=== PATIENT | male | born 1990 | race African-American/Black ===

== ENCOUNTER 2017-05-22 13:53 | Emergency (ER) | payer SELFPAY ==
[~2017-05-22] VITALS: Ht 182.9 cm; Wt 82.0 kg
[2017-05-22] MEDS ORDERED: IOHEXOL 350 MG/ML 10 ML VIAL (for RAD DIAG) IVCONTRAST ONE (13:54)
[2017-05-22 14:07] VITALS: BP 124/67; PULSE 87; RESP 19; TEMP 98.8; O2SAT 99
[2017-05-22] MEDS ORDERED: ONDANSETRON HCL 4 MG/2 ML VIAL IV PUSH ONE (14:15)
[2017-05-22] MEDS ORDERED: SODIUM CHLOR 0.9% 1000 ML INJ 1,000 ML IV ONE (14:15)
[2017-05-22] MEDS ORDERED: KETOROLAC TROMETHAMINE 30 MG/ML (IVP) VIAL IV PUSH ONE (14:15)
[2017-05-22] MEDS ORDERED: MORPHINE SULFATE 2 MG/ML INJ IV PUSH ONE (14:15)
--- NOTE | 2017-05-22 14:24 | PD ---
HPI Chief Complaint: GI Complaint Time Seen by Provider: 14:07 Travel History International Travel<30 days: No Contact w/Intl Traveler<30days: No Traveled to known affect area: No History of Present Illness HPI 26-year-old male complains of right-sided abdominal pain, nausea vomiting, right groin pain, right leg pain. Patient states that the symptoms started this morning. Patient states the pain is severe pain sharp pain started on the right side abdomen with radiation to right groin and right leg. Patient denies any fever chills. Patient denies any injury. Patient denies any dysuria or frequency. Patient denies any back pain. Patient denies any history IV drug abuse. PFSH Past Medical History Bipolar Disorder: Yes Medical other: Yes (MANIC DEPRESSIVE) Schizophrenia: Yes Past Surgical History Surgical History: No Previous Surgery Social History Alcohol Use: No Tobacco Use: Yes Substance Use: Yes (THC TODAY) Allergies-Medications (Allergen,Severity, Reaction): Coded Allergies: No Known Allergies (Unverified , 05/22/17) Reported Meds & Prescriptions Reported Meds & Active Scripts Active No Active Prescriptions or Reported Medications Review of Systems General / Constitutional: No: Fever Eyes: No: Visual changes HENT: No: Headaches Cardiovascular: No: Chest Pain or Discomfort Respiratory: No: Shortness of Breath Gastrointestinal: Positive: Nausea, Vomiting, Abdominal Pain Genitourinary: No: Dysuria Musculoskeletal: Positive: Pain Skin: No Rash Neurologic: No: Weakness Psychiatric: No: Depression Endocrine: No: Polydipsia Hematologic/Lymphatic: No: Easy Bruising Physical Exam Narrative SKIN: Focused skin assessment warm/dry. HEAD: Normocephalic. EYES: No scleral icterus. No injection or drainage. NECK: Supple, trachea midline. No JVD or lymphadenopathy. CARDIOVASCULAR: Regular rate and rhythm without murmurs, gallops, or rubs. RESPIRATORY: Breath sounds equal bilaterally. No accessory muscle use. GASTROINTESTINAL: Abdomen soft, nondistended. Patient has moderate tenderness and palpation right side abdomen with some guarding. No rebound tenderness. No mass. MUSCULOSKELETAL: No cyanosis, or edema. Patient has moderate tenderness operation the right inguinal area and right anterior aspect the thigh area. No redness no heat noted. Limited range of motion right hip area. Sensorimotor function distally intact. BACK: Nontender without obvious deformity. No CVA tenderness. exam: No urethral discharge. No penile lesions noted. No tenderness on palpation of the testicle. Neurologic exam normal. Data Data Last Documented VS Vital Signs Date Time Temp Pulse Resp B/P (MAP) Pulse Ox O2 Delivery O2 Flow Rate FiO2 05/22/17 14:07 98.8 87 19 124/67 (86) 99 Room Air Orders Orders Complete Blood Count With Diff (05/22/17 14:13) Comprehensive Metabolic Panel (05/22/17 14:13) Creatine Kinase (Cpk) (05/22/17 14:13) Prothrombin Time / Inr (Pt) (05/22/17 14:13) Act Partial Throm Time (Ptt) (05/22/17 14:13) Blood Culture (05/22/17 14:13) C-Reactive Protein (Crp) (05/22/17 14:13) Lipase (05/22/17 14:13) Urinalysis - C+S If Indicated (05/22/17 14:13) Westergren Sedimentation Rate (05/22/17 14:13) Chest, Single Ap (05/22/17 14:13) Ct Abd/Pel W Iv Contrast(Rout) (05/22/17 14:13) Iv Access Insert/Monitor (05/22/17 14:13) Ecg Monitoring (05/22/17 14:13) Oximetry (05/22/17 14:13) Drug Screen, Random Urine (05/22/17 14:13) Ns (Bolus) Inj (05/22/17 14:15) Ketorolac Inj (Toradol Inj) (05/22/17 14:15) Morphine Inj (Morphine Inj) (05/22/17 14:15) Ondansetron Inj (Zofran Inj) (05/22/17 14:15) MDM Medical Decision Making Medical Screen Exam Complete: Yes Emergency Medical Condition: Yes Differential Diagnosis Differential diagnosis including nephrolithiasis, pyelonephritis, colitis, appendicitis, UTI, femoral hernia, musculoskeletal, tendinitis, bursitis, fracture dislocation. Narrative Course 26-year-old male with right-sided abdominal pain, nausea vomiting, right groin pain, right leg pain. Scripts No Active Prescriptions or Reported Meds Robby Delgado MD May 22, 2017 14:24
[2017-05-22 14:38] LABS: BILIRUBIN, URINE NEG (NEG); BLOOD, URINE NEG (NEG); GLUCOSE,URINE NEG (NEG); KETONE, URINE NEG (NEG); MUCUS URINE FEW /lpf (OCC); NITRITE,URINE NEG (NEG); SQUAMOUS EPITHELIAL CELL URINE 1 /hpf (0-5); URINE COLOR YELLOW (YELLW/STRAW); URINE LEUKOCYTE ESTERASE NEG (NEG)
[2017-05-22 14:41] LABS: INTERNATIONAL NORMALIZED RATIO 1.1 RATIO; PROTHROMBIN TIME - PATIENT 10.8 SEC (9.8-11.6)
--- NOTE | 2017-05-22 14:49 | RADRPT ---
EXAM DATE/TIME: 05/22/2017 14:29 [facility] COMPARISON: No previous studies available for comparison. INDICATIONS : Shortness of breath, fever, and general weakness. MEDICAL HISTORY : None. SURGICAL HISTORY : None. ENCOUNTER: Initial ACUITY: 1 day PAIN SCORE: 0/10 LOCATION: Bilateral chest FINDINGS: A single view of the chest demonstrates the lungs to be symmetrically aerated without evidence of mas s, infiltrate or effusion. The cardiomediastinal contours are unremarkable. Osseous structures are intact. CONCLUSION: Normal examination. Froylan Marquez MD on May 22, 2017 at 14:47 Board Certified Radiologist. This report was verified electronically.
[2017-05-22 14:50] LABS: AUTOMATED NEUTROPHIL # 11.2 TH/MM3 (1.8-7.7); BASOPHIL % 0.3 % (0.0-2.0); EOSINOPHIL # 0.1 TH/MM3 (0-0.4); EOSINOPHIL % 0.6 % (0.0-4.0); HEMATOCRIT 43.5 % (39.0-51.0); HEMOGLOBIN 14.7 GM/DL (13.0-17.0); LYMPH % 15.4 % (9.0-44.0); LYMPHOCYTE # 2.2 TH/MM3 (1.0-4.8); MEAN CELL VOLUME 86.1 FL (80.0-100.0); MEAN CORPUSCULAR HGB CONC 33.7 % (32.0-36.0); MEAN PLATELET VOLUME 9.3 FL (7.0-11.0); MONO % 4.3 % (0.0-8.0); MONOCYTE # 0.6 TH/MM3 (0-0.9); NEUT % 79.4 % (16.0-70.0); PLATELET COUNT 180 TH/MM3 (150-450); RED BLOOD COUNT 5.05 MIL/MM3 (4.50-5.90); RED CELL DISTRIBUTION WIDTH 13.9 % (11.6-17.2); WHITE BLOOD COUNT 14.1 TH/MM3 (4.0-11.0)
[2017-05-22 16:46] LABS: ALBUMIN 3.8 GM/DL (3.4-5.0); ALKALINE PHOSPHATASE 46 U/L (45-117); ALT (GPT) 20 U/L (12-78); AST (GOT) 17 U/L (15-37); BLOOD UREA NITROGEN 10 MG/DL (7-18); CALCIUM 8.6 MG/DL (8.5-10.1); CHLORIDE 107 MEQ/L (98-107); CREATININE 0.99 MG/DL (0.60-1.30); GLOMERULAR FILTRATION RATE 110 ML/MIN (>89); GLUCOSE,RANDOM 83 MG/DL (74-106); SODIUM (NA) 140 MEQ/L (136-145); TOTAL BILIRUBIN ADULT 0.4 MG/DL (0.2-1.0); TOTAL PROTEIN 7.7 GM/DL (6.4-8.2)
[2017-05-22 17:03] LABS: C-REACTIVE PROTEIN LESS THAN 0.29 MG/DL (0.00-0.30); LIPASE 107 U/L (73-393)
--- NOTE | 2017-05-22 18:15 | RADRPT ---
EXAM DATE/TIME: 05/22/2017 17:58 This report includes an Addendum and supersedes previous reports for this exam. [facility] COMPARISON: No previous studies available for comparison. INDICATIONS : Right sided abdomen and leg pain. IV CONTRAST: 97 cc Omnipaque 350 (iohexol) IV ORAL CONTRAST: No oral contrast ingested. RADIATION DOSE: 5.09 CTDIvol (mGy) MEDICAL HISTORY : None SURGICAL HISTORY : None. ENCOUNTER: Initial ACUITY: 1 day PAIN SCALE: 7/10 LOCATION: Right abdomen and leg TECHNIQUE: Volumetric scanning of the abdomen and pelvis was performed. Using automated exposure control and ad justment of the mA and/or kV according to patient size, radiation dose was kept as low as reasonably achievable to obtain optimal diagnostic quality images. DICOM format image data is available electro nically for review and comparison. FINDINGS: LOWER LUNGS: The visualized lower lungs are clear. LIVER: Homogeneous density without lesion. There is intrahepatic dilation of the biliary tree. No calcifie d gallstones. Common bile duct only measures 6 mm SPLEEN: Normal size without lesion. PANCREAS: Within normal limits. KIDNEYS: Normal in size and shape. There is no mass, stone or hydronephrosis. ADRENAL GLANDS: Within normal limits. VASCULAR: There is no aortic aneurysm. BOWEL/MESENTERY: The stomach, small bowel, and colon demonstrate no acute abnormality. There is no free intraperitone al air or fluid. ABDOMINAL WALL: Within normal limits. RETROPERITONEUM: There is no lymphadenopathy. BLADDER: No wall thickening or mass. REPRODUCTIVE: Within normal limits. INGUINAL: There is no lymphadenopathy or hernia. MUSCULOSKELETAL: Within normal limits for patient age. CONCLUSION: Unexplained intrahepatic biliary tree dilatation. No oral contrast was given therefore the bowel is c ompletely unopacified. Froylan Marquez MD on May 22, 2017 at 18:09 Board Certified Radiologist. This report was verified electronically. ADDENDUM: I have been asked to review this case. What appears to be the appendix is seen in the retrocecal posi tion. It appears to be looped back on itself. It does appear air-filled. Significant surrounding infl ammatory change is not seen. Amilcar Lee MD on May 23, 2017 at 2:14 Board Certified Radiologist. This report was verified electronically.
[2017-05-22 19:52] VITALS: BP 133/68; PULSE 79; RESP 18; O2SAT 100
[2017-05-22] MEDS ORDERED: PANT20 PO (22:36)
--- NOTE | 2017-05-22 22:36 | PD ---
Physical Exam Date Seen by Provider: May 22, 2017 Time Seen by Provider: 22:39 Narrative 26-year-old male came to the emergency room with history of right sided abdominal pain. He was seen by the previous ER physician. Please refer to his history and physical for further details. Sign out was to follow-up on the CAT scan result. CT scan is back and shows some intrahepatic ductal to palpation without any significant sign of obstruction. His LFTs are within normal limit. I will discharge him home. Data Data Last Documented VS Orders Orders Complete Blood Count With Diff (05/22/17 14:13) Creatine Kinase (Cpk) (05/22/17 14:13) Prothrombin Time / Inr (Pt) (05/22/17 14:13) Act Partial Throm Time (Ptt) (05/22/17 14:13) Blood Culture (05/22/17 14:13) C-Reactive Protein (Crp) (05/22/17 14:13) Lipase (05/22/17 14:13) Urinalysis - C+S If Indicated (05/22/17 14:13) Chest, Single Ap (05/22/17 14:13) Ct Abd/Pel W Iv Contrast(Rout) (05/22/17 14:13) Iv Access Insert/Monitor (05/22/17 14:13) Ecg Monitoring (05/22/17 14:13) Oximetry (05/22/17 14:13) Drug Screen, Random Urine (05/22/17 14:13) Sodium Chlor 0.9% 1000 Ml Inj (Ns 1000 M (05/22/17 14:15) Ketorolac Inj (Toradol Inj) (05/22/17 14:15) Morphine Inj (Morphine Inj) (05/22/17 14:15) Ondansetron Inj (Zofran Inj) (05/22/17 14:15) Lactic Acid (05/22/17 14:24) Comprehensive Metabolic Panel (05/22/17 15:23) Iohexol 350 Inj (Omnipaque 350 Inj) (05/22/17 13:54) Ed Discharge Order (05/22/17 22:36) Labs Laboratory Tests Test 05/22/17 14:22 05/22/17 15:35 White Blood Count 14.1 TH/MM3 Red Blood Count 5.05 MIL/MM3 Hemoglobin 14.7 GM/DL Hematocrit 43.5 % Mean Corpuscular Volume 86.1 FL Mean Corpuscular Hemoglobin 29.0 PG Mean Corpuscular Hemoglobin Concent 33.7 % Red Cell Distribution Width 13.9 % Platelet Count 180 TH/MM3 Mean Platelet Volume 9.3 FL Neutrophils (%) (Auto) 79.4 % Lymphocytes (%) (Auto) 15.4 % Monocytes (%) (Auto) 4.3 % Eosinophils (%) (Auto) 0.6 % Basophils (%) (Auto) 0.3 % Neutrophils # (Auto) 11.2 TH/MM3 Lymphocytes # (Auto) 2.2 TH/MM3 Monocytes # (Auto) 0.6 TH/MM3 Eosinophils # (Auto) 0.1 TH/MM3 Basophils # (Auto) 0.0 TH/MM3 CBC Comment DIFF FINAL Differential Comment Prothrombin Time 10.8 SEC Prothromb Time International Ratio 1.1 RATIO Activated Partial Thromboplast Time 22.1 SEC Urine Color YELLOW Urine Turbidity CLEAR Urine pH 6.0 Urine Specific [place] 1.021 Urine Protein NEG mg/dL Urine Glucose (UA) NEG mg/dL Urine Ketones NEG mg/dL Urine Occult Blood NEG Urine Nitrite NEG Urine Bilirubin NEG Urine Urobilinogen LESS THAN 2.0 MG/DL Urine Leukocyte Esterase NEG Urine RBC 1 /hpf Urine WBC 2 /hpf Urine Squamous Epithelial Cells 1 /hpf Urine Mucus FEW /lpf Microscopic Urinalysis Comment CULT NOT INDICATED Lactic Acid Level 1.2 mmol/L Total Creatine Kinase 289 U/L C-Reactive Protein LESS THAN 0.29 MG/DL Lipase 107 U/L Urine Opiates Screen NEG Urine Barbiturates Screen NEG Urine Amphetamines Screen NEG Urine Benzodiazepines Screen NEG Urine Cocaine Screen NEG Urine Cannabinoids Screen POS Blood Urea Nitrogen 10 MG/DL Creatinine 0.99 MG/DL Random Glucose 83 MG/DL Total Protein 7.7 GM/DL Albumin 3.8 GM/DL Calcium Level 8.6 MG/DL Alkaline Phosphatase 46 U/L Aspartate Amino Transf (AST/SGOT) 17 U/L Alanine Aminotransferase (ALT/SGPT) 20 U/L Total Bilirubin 0.4 MG/DL Sodium Level 140 MEQ/L Potassium Level 3.6 MEQ/L Chloride Level 107 MEQ/L Carbon Dioxide Level 29.0 MEQ/L Anion Gap 4 MEQ/L Estimat Glomerular Filtration Rate 110 ML/MIN [facility] Supervised Visit with PADMINI: No Diagnosis Primary Impression: Abdominal pain Qualified Codes: R10.9 - Unspecified abdominal pain Referrals: Primary Care Physician 2 days Additional Instruction: Please return to the ER if the condition worsens or any other new concerns. Take clear liquid diet for next 24-48 hours. Follow-up with your primary care. Take the medication as per the prescription direction. Med/Other Pt SpecificInfo: Prescription(s) given Scripts Pantoprazole (Protonix) 20 Mg Tab 20 MG PO DAILY for Reflux, #30 TAB 0 Refills Prov: Baltazar Varma MD 05/22/17 Disposition: 01 DISCHARGE HOME Condition: Stable Baltazar Varma MD May 22, 2017 22:36
[2017-05-23] MEDS ORDERED: LEVO750T3 PO (05:58)
== END 2017-05-22 22:55 | disposition home or self-care (01) ==
LOC: NEPD 13:53
DX: R10.9 Unspecified abdominal pain (principal); R11.2 Nausea with vomiting, unspecified; M79.604 Pain in right leg; F31.9 Bipolar disorder, unspecified; F20.9 Schizophrenia, unspecified; Z72.0 Tobacco use
CPT/HCPCS: 71010; 74177; 80053; 80307; 81001; 82550; 83605; 83690; 85025; 85610; 85730; 86140; 87040; 96361; 96374; 96375; 99285; J1885; J2270; J2405; J7030; Q9967

== ENCOUNTER 2017-05-23 01:25 | Emergency (ER) | payer SELFPAY ==
[~2017-05-23 01:25] MED LIST: PANT20 PO
[2017-05-23 01:28] VITALS: BP 142/88; PULSE 94; RESP 16; TEMP 100.2; O2SAT 97
[2017-05-23] MEDS ORDERED: SODIUM CHLOR 0.9% 1000 ML INJ 1,000 ML IV SCH (01:41)
[2017-05-23] MEDS ORDERED: SODIUM CHLORIDE 0.9% FLUSH 10 ML FLUSH IV FLUSH PRN (01:45)
[2017-05-23] MEDS ORDERED: HYDROmorphone HCL PF 2 MG/ML VIAL IV PUSH ONE (01:45)
[2017-05-23] MEDS ORDERED: ONDANSETRON HCL 4 MG/2 ML VIAL IVP ONE (01:45)
[2017-05-23] MEDS ORDERED: PIPERACIL-TAZO 4.5 GM PREMIX 100 ML IV ONE (02:00)
[2017-05-23] MEDS ORDERED: SODIUM CHLOR 0.9% 1000 ML INJ 1,000 ML IV ONE (02:00)
[2017-05-23 02:11] LABS: AUTOMATED NEUTROPHIL # 15.3 TH/MM3 (1.8-7.7); BASOPHIL # 0.1 TH/MM3 (0-0.2); BASOPHIL % 0.5 % (0.0-2.0); HEMATOCRIT 46.9 % (39.0-51.0); HEMOGLOBIN 15.4 GM/DL (13.0-17.0); LYMPH % 7.4 % (9.0-44.0); LYMPHOCYTE # 1.3 TH/MM3 (1.0-4.8); MEAN CELL VOLUME 86.3 FL (80.0-100.0); MEAN CORPUSCULAR HEMOGLOBIN 28.3 PG (27.0-34.0); MEAN CORPUSCULAR HGB CONC 32.8 % (32.0-36.0); MEAN PLATELET VOLUME 9.3 FL (7.0-11.0); MONO % 5.8 % (0.0-8.0); NEUT % 86.3 % (16.0-70.0); PLATELET COUNT 171 TH/MM3 (150-450); RED BLOOD COUNT 5.44 MIL/MM3 (4.50-5.90); RED CELL DISTRIBUTION WIDTH 13.6 % (11.6-17.2); WHITE BLOOD COUNT 17.7 TH/MM3 (4.0-11.0)
[2017-05-23 02:31] LABS: ALKALINE PHOSPHATASE 48 U/L (45-117); ALT (GPT) 19 U/L (12-78); AST (GOT) 21 U/L (15-37); BICARBONATE 28.2 MEQ/L (21.0-32.0); BLOOD UREA NITROGEN 11 MG/DL (7-18); CALCIUM 9.1 MG/DL (8.5-10.1); CHLORIDE 102 MEQ/L (98-107); CREATININE 1.28 MG/DL (0.60-1.30); GLOMERULAR FILTRATION RATE 82 ML/MIN (>89); GLUCOSE,RANDOM 85 MG/DL (74-106); LIPASE 87 U/L (73-393); SODIUM (NA) 136 MEQ/L (136-145); TOTAL BILIRUBIN ADULT 0.5 MG/DL (0.2-1.0); TOTAL PROTEIN 8.5 GM/DL (6.4-8.2)
[2017-05-23] MEDS ORDERED: DIATRIZOATE MEGLUM/DIATRIZOATE SOD 9 ML CUP ONE (02:32)
--- NOTE | 2017-05-23 02:35 | PD ---
HPI Chief Complaint: Back/ Neck Pain or Injury Time Seen by Provider: 01:38 Travel History International Travel<30 days: No Contact w/Intl Traveler<30days: No Traveled to known affect area: No History of Present Illness HPI Patient's 26 years old and returns to the ER complaining of worsening abdominal pain, nausea and fever. He was just seen here [address] hours ago and a [address] scan of the abdomen and pelvis revealed intrahepatic biliary ductal dilatation of indeterminate significance. Blood work at that time revealed a white count of 14,000 patient was discharged. He reports symptoms have gradually worsened since then thus prompting ER evaluation. Timing constant. Pain is worse with palpation. PFSH Past Medical History Bipolar Disorder: Yes Diminished Hearing: No Schizophrenia: Yes Past Surgical History Surgical History: No Previous Surgery Social History Alcohol Use: No Tobacco Use: Yes Substance Use: Yes (THC) Allergies-Medications (Allergen,Severity, Reaction): Coded Allergies: No Known Allergies (Unverified , 05/22/17) Reported Meds & Prescriptions Reported Meds & Active Scripts Active Protonix (Pantoprazole Sodium) 20 Mg Tab 20 Mg PO DAILY Review of Systems Except as stated in HPI: all other systems reviewed are Neg Physical Exam Narrative GENERAL: 26-year-old male well-nourished well-developed mild to moderate distress secondary to pain and/or infection SKIN: Warm and dry. HEAD: Atraumatic. Normocephalic. EYES: Pupils equal and round. No scleral icterus. No injection or drainage. ENT: No nasal bleeding or discharge. Mucous membranes pink and moist. NECK: Trachea midline. No JVD. CARDIOVASCULAR: Regular rate and rhythm. RESPIRATORY: No accessory muscle use. Clear to auscultation. Breath sounds equal bilaterally. GASTROINTESTINAL: Diffuse tenderness to palpation. Voluntary guarding. MUSCULOSKELETAL: Extremities without clubbing, cyanosis, or edema. No obvious deformities. NEUROLOGICAL: Awake and alert. No obvious cranial nerve deficits. Motor grossly within normal limits. Five out of 5 muscle strength in the arms and legs. Normal speech. PSYCHIATRIC: Appropriate mood and affect; insight and judgment normal. Data Data Last Documented VS Vital Signs Date Time Temp Pulse Resp B/P (MAP) Pulse Ox O2 Delivery O2 Flow Rate FiO2 05/23/17 01:28 100.2 94 16 142/88 (106) 97 Room Air vital signs reviewed Orders Orders Complete Blood Count With Diff (05/23/17 01:41) Comprehensive Metabolic Panel (05/23/17 01:41) Lipase (05/23/17 01:41) Lactic Acid (05/23/17 01:41) Urinalysis - C+S If Indicated (05/23/17 01:41) Ct Abd/Pel W Iv Contrast(Rout) (05/23/17 01:41) Iv Access Insert/Monitor (05/23/17 01:41) Ecg Monitoring (05/23/17 01:41) Oximetry (05/23/17 01:41) Ondansetron Inj (Zofran Inj) (05/23/17 01:45) Sodium Chlor 0.9% 1000 Ml Inj (Ns 1000 M (05/23/17 01:41) Sodium Chloride 0.9% Flush (Ns Flush) (05/23/17 01:45) Hydromorphone Pf Inj (Dilaudid Pf Inj) (05/23/17 01:45) Influenzae A/B Antigen (05/23/17 01:49) Piperacil-Tazo 4.5 Gm Premix (Zosyn 4.5 (05/23/17 02:00) Sodium Chlor 0.9% 1000 Ml Inj (Ns 1000 M (05/23/17 02:00) Oral Contrast - Adult (05/23/17 02:30) Diatrizoate Liq ( Gastroview Liq) (05/23/17 02:32) Urine Culture (05/23/17 03:20) Iohexol 350 Inj (Omnipaque 350 Inj) (05/23/17 05:08) Labs Laboratory Tests Test 05/23/17 02:00 05/23/17 03:20 White Blood Count 17.7 TH/MM3 Red Blood Count 5.44 MIL/MM3 Hemoglobin 15.4 GM/DL Hematocrit 46.9 % Mean Corpuscular Volume 86.3 FL Mean Corpuscular Hemoglobin 28.3 PG Mean Corpuscular Hemoglobin Concent 32.8 % Red Cell Distribution Width 13.6 % Platelet Count 171 TH/MM3 Mean Platelet Volume 9.3 FL Neutrophils (%) (Auto) 86.3 % Lymphocytes (%) (Auto) 7.4 % Monocytes (%) (Auto) 5.8 % Eosinophils (%) (Auto) 0.0 % Basophils (%) (Auto) 0.5 % Neutrophils # (Auto) 15.3 TH/MM3 Lymphocytes # (Auto) 1.3 TH/MM3 Monocytes # (Auto) 1.0 TH/MM3 Eosinophils # (Auto) 0.0 TH/MM3 Basophils # (Auto) 0.1 TH/MM3 CBC Comment DIFF FINAL Differential Comment Blood Urea Nitrogen 11 MG/DL Creatinine 1.28 MG/DL Random Glucose 85 MG/DL Total Protein 8.5 GM/DL Albumin 4.0 GM/DL Calcium Level 9.1 MG/DL Alkaline Phosphatase 48 U/L Aspartate Amino Transf (AST/SGOT) 21 U/L Alanine Aminotransferase (ALT/SGPT) 19 U/L Total Bilirubin 0.5 MG/DL Sodium Level 136 MEQ/L Potassium Level 4.3 MEQ/L Chloride Level 102 MEQ/L Carbon Dioxide Level 28.2 MEQ/L Anion Gap 6 MEQ/L Estimat Glomerular Filtration Rate 82 ML/MIN Lactic Acid Level 1.8 mmol/L Lipase 87 U/L Urine Color YELLOW Urine Turbidity CLEAR Urine pH 6.5 Urine Specific [place] 1.050 Urine Protein 30 mg/dL Urine Glucose (UA) NEG mg/dL Urine Ketones TRACE mg/dL Urine Occult Blood NEG Urine Nitrite NEG Urine Bilirubin NEG Urine Urobilinogen LESS THAN 2.0 MG/DL Urine Leukocyte Esterase LARGE Urine RBC 9 /hpf Urine WBC 48 /hpf Urine Squamous Epithelial Cells 1 /hpf Urine Bacteria RARE /hpf Urine Mucus FEW /lpf Microscopic Urinalysis Comment CULTURE INDICATED MDM Medical Decision Making Medical Screen Exam Complete: Yes Emergency Medical Condition: Yes Medical Record Reviewed: Yes Differential Diagnosis Gastritis, pancreatitis, appendicitis, acute cholecystitis, ascending cholangitis, AAA, perforated viscous, mesenteric ischemia, hepatitis, cystitis, hydronephrosis/hydroureter/nephroureter calculus, mesenteric adenitis, biliary colic Narrative Course CBC & BMP Diagram 05/23/17 02:00 Total Protein 8.5 #H, Albumin 4.0, Calcium Level 9.1, Alkaline Phosphatase 48, Aspartate Amino Transf (AST/SGOT) 21, Alanine Aminotransferase (ALT/SGPT) 19, Total Bilirubin 0.5 IV fluids started. IV Zosyn started. Pain controlled work up shows no medical/surgical emergency pt ok with dc if bus is running pt requested [place] UA shows uti possible consolidation R lung Levaquin script Diagnosis Primary Impression: Cystitis Additional Impressions: UTI (urinary tract infection) Qualified Codes: N30.01 - Acute cystitis with hematuria Intrahepatic bile duct dilation Referrals: Juan Juárez MD call for appointment Med/Other Pt SpecificInfo: Prescription(s) given Scripts Levofloxacin (Levofloxacin) 750 Mg Tablet 750 MG PO DAILY for Infection, #6 TAB 0 Refills Prov: Kong Watson MD 05/23/17 Disposition: 01 DISCHARGE HOME Condition: Stable Kong Watson MD May 23, 2017 02:35
[2017-05-23 03:45] LABS: BACTERIA, URINE RARE /hpf; BILIRUBIN, URINE NEG (NEG); BLOOD, URINE NEG (NEG); GLUCOSE,URINE NEG (NEG); KETONE, URINE TRACE mg/dL (NEG); MUCUS URINE FEW /lpf (OCC); NITRITE,URINE NEG (NEG); PH, URINE 6.5 (5.0-8.5); SQUAMOUS EPITHELIAL CELL URINE 1 /hpf (0-5); URINE COLOR YELLOW (YELLW/STRAW); URINE LEUKOCYTE ESTERASE LARGE (NEG)
[2017-05-23] MEDS ORDERED: IOHEXOL 350 MG/ML 10 ML VIAL (for RAD DIAG) IVCONTRAST ONE (05:08)
--- NOTE | 2017-05-23 05:45 | RADRPT ---
EXAM DATE/TIME: 05/23/2017 04:53 [facility] COMPARISON: CT ABDOMEN & PELVIS W CONTRAST, May 22, 2017, 17:58. INDICATIONS : Increasing right sided abdominal pain, fever and elevated white count. IV CONTRAST: 98 cc Omnipaque 350 (iohexol) IV ORAL CONTRAST: Prescribed oral contrast ingested. RADIATION DOSE: 6.64 CTDIvol (mGy) MEDICAL HISTORY : None SURGICAL HISTORY : None. ENCOUNTER: Subsequent ACUITY: 1 day PAIN SCALE: 8/10 LOCATION: Right abdomen TECHNIQUE: Volumetric scanning of the abdomen and pelvis was performed. Using automated exposure control and ad justment of the mA and/or kV according to patient size, radiation dose was kept as low as reasonably achievable to obtain optimal diagnostic quality images. DICOM format image data is available electro nically for review and comparison. FINDINGS: LOWER LUNGS: There is mild suspected atelectasis or consolidation at the right lung base. LIVER: There is dilatation of the intrahepatic biliary ducts. The common bile duct does not appear distended . There is contrast now seen in the gallbladder secondary to vicarious excretion. SPLEEN: Normal size without lesion. PANCREAS: Within normal limits. KIDNEYS: Normal in size and shape. There is no mass, stone or hydronephrosis. ADRENAL GLANDS: Within normal limits. VASCULAR: There is no aortic aneurysm. BOWEL/MESENTERY: The appendix is filled with contrast and is normal. Significantly distended bowel is not clearly seen . There is a 2.4 cm area of l density seen in the left periaortic region likely related to the unopac ified third portion of duodenum. There is a mild amount of free fluid seen in the pelvis. ABDOMINAL WALL: Within normal limits. RETROPERITONEUM: There is no lymphadenopathy. BLADDER: The bladder is diffusely thickened but this is likely secondary to lack of distention. REPRODUCTIVE: Within normal limits. INGUINAL: There is no lymphadenopathy or hernia. MUSCULOSKELETAL: Within normal limits for patient age. CONCLUSION: 1. Biliary duct dilatation. The cause for this dilatation is not seen. This finding is thought to be the most significant finding on this CT examination. 2. The appendix is normal. 3. Mild free fluid in the pelvis. 4. Mild atelectasis or consolidation at the right lung base. Amilcar Lee MD on May 23, 2017 at 5:34 Board Certified Radiologist. This report was verified electronically.
[2017-05-23] MEDS ORDERED: LEVO750T3 PO (05:58)
[2017-05-23 06:30] VITALS: BP 138/72; PULSE 72; RESP 16; O2SAT 97
== END 2017-05-23 06:41 | disposition home or self-care (01) ==
LOC: NEPC 01:25
DX: N30.01 Acute cystitis with hematuria (principal); B96.89 Other specified bacterial agents as the cause of diseases classified elsewhere; K83.8 Other specified diseases of biliary tract; Z72.0 Tobacco use
CPT/HCPCS: 74177; 80053; 81001; 83605; 83690; 85025; 87086; 87804; 96365; 96375; 99285; J1170; J2405; J2543; J7030; Q9963; Q9967

== ENCOUNTER 2017-11-19 04:13 | Emergency (ER) | payer SELFPAY ==
[~2017-11-19 04:13] MED LIST changes: +LEVO750T3 PO
[2017-11-19 04:18] VITALS: BP 133/76; PULSE 62; RESP 16; TEMP 98.8; O2SAT 98
[2017-11-19] MEDS ORDERED: IBUP1TAB7 PO (04:31)
[2017-11-19] MEDS ORDERED: PENI500T PO (04:31)
--- NOTE | 2017-11-19 04:33 | PD ---
HPI Chief Complaint: Oral / Dental Pain or Problem Time Seen by Provider: 04:30 Travel History International Travel<30 days: No Contact w/Intl Traveler<30days: No Traveled to known affect area: No History of Present Illness HPI 27-year-old male presents for evaluation of dental pain. Symptom onset 3 months ago. Symptoms worsened today which prompted evaluation. Pain is throbbing, constant, localized to the right mandibular first molar, worse with chewing, not relieved with the use of salt water gargles. Denies any dental trauma, fevers or chills. No other complaints at this time. PFSH Past Medical History Bipolar Disorder: Yes Diminished Hearing: No Schizophrenia: Yes Social History Alcohol Use: No Tobacco Use: Yes Substance Use: Yes (THC) Allergies-Medications (Allergen,Severity, Reaction): Coded Allergies: No Known Allergies (Unverified , 11/19/17) Reported Meds & Prescriptions Reported Meds & Active Scripts Active Penicillin V Potassium 500 Mg Tab 500 Mg PO Q8H 10 Days Ibuprofen 800 Mg Tab 800 Mg PO Q6HR PRN Levofloxacin 750 Mg Tablet 750 Mg PO DAILY Protonix (Pantoprazole Sodium) 20 Mg Tab 20 Mg PO DAILY Review of Systems Except as stated in HPI: all other systems reviewed are Neg Physical Exam Narrative GENERAL: Well-nourished male in no acute distress SKIN: Warm and dry. HEAD: Atraumatic. Normocephalic. EYES: Pupils equal and round. No scleral icterus. No injection or drainage. ENT: No nasal bleeding or discharge. Mucous membranes pink and moist. Cavity noted to the right mandibular first molar. No gingival edema or sublingual edema, no facial edema, no trismus. NECK: Trachea midline. No JVD. No lymphadenopathy. CARDIOVASCULAR: Regular rate and rhythm. No murmur appreciated. RESPIRATORY: No accessory muscle use. Clear to auscultation. Breath sounds equal bilaterally. Data Data Last Documented VS Vital Signs Date Time Temp Pulse Resp B/P (MAP) Pulse Ox O2 Delivery O2 Flow Rate FiO2 11/19/17 04:18 98.8 62 16 133/76 (95) 98 MDM Medical Decision Making Medical Screen Exam Complete: Yes Emergency Medical Condition: Yes Medical Record Reviewed: Yes Differential Diagnosis Dental caries, pulpitis, pericoronitis, periodontal abscess Narrative Course Stable for discharge. Diagnosis Primary Impression: Dental caries Additional Instructions: Follow-up with a dentist for definitive therapy. Medication as prescribed. Avoid tobacco products. Med/Other Pt SpecificInfo: Prescription(s) given Scripts Penicillin V Potassium (Penicillin V Potassium) 500 Mg Tab 500 MG PO Q8H for Infection for 10 Days, #30 TAB 0 Refills Prov: Mehrdad Rosado MD 11/19/17 Ibuprofen (Ibuprofen) 800 Mg Tab 800 MG PO Q6HR Y for PAIN, #40 TAB 0 Refills Prov: Mehrdad Rosado MD 11/19/17 Disposition: 01 DISCHARGE HOME Condition: Stable Parvin Hassan Nov 19, 2017 04:33
== END 2017-11-19 05:22 | disposition home or self-care (01) ==
LOC: NEPD 04:13
DX: K02.9 Dental caries, unspecified (principal); F31.9 Bipolar disorder, unspecified; F20.9 Schizophrenia, unspecified; Z79.899 Other long term (current) drug therapy; Z72.0 Tobacco use
CPT/HCPCS: 99283